=== PATIENT | female | born 1965 | race African-American/Black ===

== ENCOUNTER 2021-01-02 06:51 | Inpatient (IN) | payer OTHER ==
[~2021-01-02] VITALS: Ht 160 cm; Wt 122.5 kg
[2021-01-02] MEDS ORDERED: MethylPREDNISolone SOD SUCC 125 MG/2 ML VIAL IVP ONE (07:15)
[2021-01-02 07:29] LABS: BASOPHILS % (AUTO) 1.1 % (0.0-2.0); EOSINOPHILS % (AUTO) 3.7 % (1.0-6.0); HEMATOCRIT 43.6 % (36-46); LYMPHOCYTES # (AUTO) 4.3 K/uL (1.0-4.8); LYMPHOCYTES % (AUTO) 40.2 % (22.0-44.0); MEAN CORPUSCULAR HEMOGLOBIN 30.8 pg (26.0-34.0); MEAN CORPUSCULAR HGB CONC 32.2 G/dL (31.0-37.0); MEAN CORPUSCULAR VOLUME 96 fL (80-100); MONOCYTES # (AUTO) 0.5 K/uL (0.1-1.0); MONOCYTES % (AUTO) 4.5 % (2.0-9.0); NEUTROPHILS # (AUTO) 5.4 K/uL (1.8-7.7); NEUTROPHILS % (AUTO) 50.5 % (40.0-70.0); PLATELET COUNT (AUTO) 365 K/uL (150-450); RED BLOOD CELL COUNT(AUTO) 4.55 MIL/uL (4.00-5.20)
[2021-01-02] MEDS ORDERED: NITROGLYCERIN 50 MG/D5% WATER 250 ML IV PRN ×2 (07:30→10:00)
[2021-01-02 07:43] LABS: COVID AG,FIA SOURCE NASAL SWAB
[2021-01-02 07:46] LABS: ANION GAP 9 mmol/L (8-16); CALCIUM, TOTAL 8.8 mg/dL (8.8-10.5); CARBON DIOXIDE 28 mmol/L (22-29); CHLORIDE 103 mmol/L (98-107); GLOMERULAR FILTR. RATE CALC > 60 mL/min (>60); GLUCOSE,RANDOM 279 mg/dL (70-110); POTASSIUM 3.9 mmol/L (3.5-5.1); SODIUM SERUM 140 mmol/L (136-145); UREA NITROGEN, BLOOD 17 mg/dL (7-18)
[2021-01-02 08:00] VITALS: BP 178/115
[2021-01-02 08:09] LABS: B-TYPE NATRIURETIC PEPTIDE 313 pg/mL (0-100)
[2021-01-02 08:10] LABS: ALANINE AMINOTRANSFERASE 39 U/L (12-78); ALKALINE PHOSPHATASE 88 U/L (46-116); ASPARTATE AMINOTRANSFERASE 32 U/L (15-37); BILIRUBIN,TOTAL 0.6 mg/dL (0.1-1.0); CREATINE KINASE, TOTAL ONLY 145 U/L (26-192); TOTAL PROTEIN, SERUM 8.2 g/dL (6.4-8.2)
[2021-01-02] MEDS ORDERED: DOXYCYCLINE HYCLATE 100 MG in DEXTROSE 5%-WATER 100 ML IV ONE (08:30)
[2021-01-02] MEDS ORDERED: CefTRIAXone 1 GM/DEXTROSE 50 ML IV ONE (08:30)
[2021-01-02 09:17] LABS: ABG A-A DIFF O2 535.5 mmHg (10-20.0); ABG BASE EXCESS -1.4 mmol/L (-2.0-3.0); ABG CARBOXYHEMOGLOBIN 0.8 % (0.0-1.5); ABG HCO3 22.8 mmol/L (22.0-26.0); ABG METHEMOGLOBIN 0.3 % (0.0-1.5); ABG OXYGEN CONTENT 18.3 mL/dL (15.0-23.0); ABG OXYGEN SATURATION 98.6 % (95.0-98.0); ABG OXYHEMOGLOBIN 97.5 % (94.0-100.0); ABG PCO2 51 mmHg (35-45); ABG PH 7.308 (7.35-7.450); ABG TOTAL HEMOGLOBIN 13.2 G/dL (12.0-18.0); PO2, ARTERIAL BG 129.6 mmHg (84.0-92.0); SOURCE, BLOOD GAS ARTERIAL; TEMPERATURE, FAHRENHEIT, BG 96.7 FAHREN (96.0-98.6)
[2021-01-02 09:18] LABS: SITE, BLOOD GAS RT RADIAL
[2021-01-02 09:19] LABS: INSPIRATORY TIME, BG 0.9 SEC; O2 DEVICE,BLOOD GAS BIPAP (ROOM AIR)
[2021-01-02] MEDS ORDERED: HYDROCODONE/ACETAMINOPHEN 5-325 MG TABLET PO PRN (10:00)
[2021-01-02] MEDS ORDERED: ONDANSETRON HCL 4 MG/2 ML VIAL IVP PRN (10:00)
[2021-01-02] MEDS ORDERED: IPRATROPIUM BROMIDE 0.5 MG/2.5 ML NEB SOLUTION NEB PRN (10:00)
[2021-01-02] MEDS ORDERED: ZOLPIDEM TARTRATE 5 MG TABLET PO PRN (10:00)
[2021-01-02] MEDS ORDERED: BISACODYL 10 MG RECTAL RECTAL SUPPOSITORY PR PRN (10:00)
[2021-01-02] MEDS ORDERED: MAGNESIUM HYDROXIDE SUSPENSION 30 ML UDCUP PO PRN (10:00)
[2021-01-02] MEDS ORDERED: MORPHINE SULFATE 2 MG/ML SYRINGE IVP PRN (10:00)
[2021-01-02] MEDS ORDERED: ALBUTEROL SULFATE 2.5 MG/0.5 ML NEB SOLUTION NEB PRN (10:00)
[2021-01-02 10:12] LABS: LACTIC ACID 2.6 mmol/L (0.4-2.0)
[2021-01-02] MEDS: ACETAMINOPHEN 325 MG TABLET PO PRN (10:19)
[2021-01-02] MEDS ORDERED: AZITHROMYCIN 500 MG/NS 250 ML IV SCH (12:00)
[2021-01-02 12:15] VITALS: BP 159/107
[2021-01-02] MEDS: MethylPREDNISolone SOD SUCC 125 MG/2 ML VIAL IVP SCH ×2 (13:11→17:40)
[2021-01-02] MEDS ORDERED: PNEUMOCOCCAL VACCINE POLYVALENT 0.5 ML VIAL [PPSV23] IM. ONE (13:45)
[2021-01-02] MEDS: HydrALAZINE HCL 20 MG/ML VIAL IVP PRN (14:21)
[2021-01-02] MEDS: AmLODIPine BESYLATE 10 MG TABLET PO SCH (14:21)
[2021-01-02] MEDS: ALBUTEROL SULFATE 2.5 MG/0.5 ML NEB SOLUTION NEB SCH ×2 (14:49→19:24)
[2021-01-02] MEDS: IPRATROPIUM BROMIDE 0.5 MG/2.5 ML NEB SOLUTION NEB SCH ×2 (14:49→19:24)
[2021-01-02 16:00] VITALS: BP 181/103
[2021-01-02] MEDS: BENZONATATE 100 MG CAPSULE PO SCH ×2 (16:17→20:52)
[2021-01-02] MEDS: HEPARIN SODIUM,PORCINE 5,000 UNITS/ML VIAL SQ SCH (16:17)
[2021-01-02 17:37] VITALS: BP 183/111
[2021-01-02] MEDS: CARVEDILOL 3.125 MG TABLET PO SCH (17:41)
[2021-01-02 18:30] VITALS: BP 167/100
[2021-01-02 20:00] VITALS: BP 164/94
[2021-01-02] MEDS: DOCUSATE SODIUM 100 MG CAPSULE PO SCH (20:51)
[2021-01-02] MEDS: GuaiFENesin SR 600 MG ER TABLET PO SCH (20:51)
[2021-01-03] VITALS: BP 148/71
[2021-01-03] MEDS: CARVEDILOL 3.125 MG TABLET PO SCH ×2 (00:01→08:39)
[2021-01-03] MEDS: MethylPREDNISolone SOD SUCC 125 MG/2 ML VIAL IVP SCH ×3 (00:02→13:24)
[2021-01-03] MEDS: HEPARIN SODIUM,PORCINE 5,000 UNITS/ML VIAL SQ SCH ×3 (00:02→15:39)
[2021-01-03] MEDS: ALBUTEROL SULFATE 2.5 MG/0.5 ML NEB SOLUTION NEB SCH ×3 (03:02→14:25)
[2021-01-03] MEDS: IPRATROPIUM BROMIDE 0.5 MG/2.5 ML NEB SOLUTION NEB SCH ×3 (03:02→14:25)
[2021-01-03 04:00] VITALS: BP 151/86
[2021-01-03 05:56] LABS: BASOPHILS % (AUTO) 0.3 % (0.0-2.0); EOSINOPHILS % (AUTO) 0.1 % (1.0-6.0); HEMATOCRIT 38.2 % (36-46); HEMOGLOBIN 12.4 g/dL (12.0-16.0); LYMPHOCYTES # (AUTO) 0.8 K/uL (1.0-4.8); MEAN CORPUSCULAR HEMOGLOBIN 30.1 pg (26.0-34.0); MEAN CORPUSCULAR HGB CONC 32.4 G/dL (31.0-37.0); MEAN CORPUSCULAR VOLUME 93 fL (80-100); MONOCYTES # (AUTO) 0.3 K/uL (0.1-1.0); MONOCYTES % (AUTO) 1.9 % (2.0-9.0); NEUTROPHILS # (AUTO) 14.7 K/uL (1.8-7.7); PLATELET COUNT (AUTO) 294 K/uL (150-450); RED BLOOD CELL COUNT(AUTO) 4.11 MIL/uL (4.00-5.20)
[2021-01-03 06:08] LABS: NEUTROPHILS % (AUTO) 92.7 % (40.0-70.0)
[2021-01-03 06:13] LABS: ALANINE AMINOTRANSFERASE 36 U/L (12-78); ALBUMIN 3.9 g/dL (3.4-5.0); ALKALINE PHOSPHATASE 58 U/L (46-116); ANION GAP 12 mmol/L (8-16); ASPARTATE AMINOTRANSFERASE 25 U/L (15-37); BILIRUBIN,TOTAL 0.9 mg/dL (0.1-1.0); CALCIUM, TOTAL 9.3 mg/dL (8.8-10.5); CARBON DIOXIDE 27 mmol/L (22-29); CHLORIDE 104 mmol/L (98-107); CREATININE 0.89 mg/dL (0.60-1.30); GLOMERULAR FILTR. RATE CALC > 60 mL/min (>60); GLUCOSE,RANDOM 160 mg/dL (70-110); POTASSIUM 3.8 mmol/L (3.5-5.1); SODIUM SERUM 143 mmol/L (136-145); TOTAL PROTEIN, SERUM 7.8 g/dL (6.4-8.2); UREA NITROGEN, BLOOD 13 mg/dL (7-18)
[2021-01-03] MEDS: HydrALAZINE HCL 20 MG/ML VIAL IVP PRN (06:57)
[2021-01-03 08:00] VITALS: BP 158/95
[2021-01-03] MEDS: DOCUSATE SODIUM 100 MG CAPSULE PO SCH (08:38)
[2021-01-03] MEDS: GuaiFENesin SR 600 MG ER TABLET PO SCH (08:38)
[2021-01-03] MEDS: BENZONATATE 100 MG CAPSULE PO SCH ×2 (08:39→15:39)
[2021-01-03] MEDS: AmLODIPine BESYLATE 10 MG TABLET PO SCH (08:39)
[2021-01-03] MEDS ORDERED: CefTRIAXone 1 GM/DEXTROSE 50 ML IV SCH (09:00)
[2021-01-03] MEDS ORDERED: PANTOPRAZOLE SODIUM 40 MG DR TABLET PO SCH (09:00)
[2021-01-03] MEDS: ACETAMINOPHEN 325 MG TABLET PO PRN (09:34)
[2021-01-03 12:00] VITALS: BP 136/89
[2021-01-03 16:00] VITALS: BP 157/97
== END 2021-01-03 16:30 | disposition short-term general hospital (02) | DRG 189 ==
LOC: EMS 06:53 → ICU 08:40
PROVIDERS: ADMIT Internal Medicine; ATTEND Internal Medicine
PROC: 5A09357 Assistance with Respiratory Ventilation, Less than 24 Consecutive Hours, Continuous Positive Airway Pressure (ICD-10-PCS; principal; 2021-01-02)
DX: J96.01 Acute respiratory failure with hypoxia (principal); I50.33 Acute on chronic diastolic (congestive) heart failure; I16.1 Hypertensive emergency; E87.2 Acidosis; J44.1 Chronic obstructive pulmonary disease with (acute) exacerbation; Z68.42 Body mass index [BMI] 45.0-49.9, adult; Z20.822 Contact with and (suspected) exposure to COVID-19; I11.0 Hypertensive heart disease with heart failure; E66.01 Morbid (severe) obesity due to excess calories; E11.65 Type 2 diabetes mellitus with hyperglycemia; Z91.14 Patient's other noncompliance with medication regimen
CPT/HCPCS: 36600; 71045; 80053; 82550; 82805; 83605; 83880; 84484; 85025; 87040; 87081; 87426; 93005; 93306; 94640; 94660; 99291; 99292; G0378; J0360; J0456; J0696; J1644; J2930; J3490; J7060; 36415-L1; 36415-TC; J7613; U0003